=== PATIENT | male | born 1950 | race African-American/Black ===

== ENCOUNTER 2023-09-13 11:04 | Emergency (ER) | payer BC ==
[~2023-09-13] VITALS: Ht 167.6 cm; Wt 63.5 kg
[2023-09-13] MEDS: IV NS 0.9% 1,000 ML BAG IV ONE (11:55)
[2023-09-13 11:59] LABS: BASOPHILS # (AUTO) 0.1 K/uL (0.0-0.2); BASOPHILS % (AUTO) 0.6 % (0.0-2.0); EOSINOPHILS % (AUTO) 0.2 % (0.0-6.0); HEMATOCRIT 33 % (39-51); HEMOGLOBIN 11.1 g/dL (13.5-17.5); LYMPHOCYTES # (AUTO) 1.9 K/uL (0.8-4.8); LYMPHOCYTES % (AUTO) 15.5 % (20.0-44.0); MEAN CORPUSCULAR HEMOGLOBIN 30 PG (26.0-33.0); MEAN CORPUSCULAR HGB CONC 34 g/dl (31.0-36.0); MEAN CORPUSCULAR VOLUME 89 fL (80-96); MONOCYTES # (AUTO) 1.4 K/uL (0.1-1.30); MONOCYTES % (AUTO) 11.8 % (2.0-12.0); NEUTROPHILS # (AUTO) 8.7 K/uL (1.8-8.9); NEUTROPHILS % (AUTO) 71.9 % (43.0-81.0); PLATELET COUNT (AUTO) 154 K/uL (150-450); RED BLOOD CELL COUNT(AUTO) 3.69 MIL/uL (4.5-6.0); RED CELL DISTRIBUTION WIDTH 15.4 % (11.5-15.0); WHITE BLOOD COUNT (AUTO) 12.1 K/uL (4.3-11.0)
[2023-09-13] MEDS: CEFEPIME 1 GM in IV D5W 50 ML IV ONE (11:59)
[2023-09-13] MEDS: VANCOMYCIN 1 GM in IV D5W 250 ML IV ONE (12:01)
[2023-09-13 12:12] LABS: INR 1.34 (0.91-1.10); PROTHROMBIN TIME 13.6 SECS (9.2-11.1)
[2023-09-13 12:14] LABS: PARTIAL THROMBOPLASTIN TIME 19.4 SEC (24.3-34.3)
[2023-09-13 12:18] LABS: LACTIC ACID 2.1 mmol/L (0.4-2.0)
[2023-09-13 12:27] LABS: ALANINE AMINOTRANSFERASE 33 U/L (12-78); ALBUMIN 2.2 g/dL (3.4-5.0); ALKALINE PHOSPHATASE 195 U/L (46-116); ASPARTATE AMINOTRANSFERASE 98 U/L (15-37); BILIRUBIN,DIRECT 0.6 mg/dL (0.0-0.2); BILIRUBIN,TOTAL 1.6 mg/dL (0.2-1.0); CARBON DIOXIDE 28 mmol/L (21-32); CHLORIDE 105 mmol/L (98-107); CREATININE 0.8 mg/dL (0.6-1.3); GLUCOSE 111 mg/dL (74-106); SODIUM SERUM 138 mmol/L (136-145); TOTAL PROTEIN, SERUM 8.6 g/dL (6.4-8.2); UREA NITROGEN, BLOOD 10 mg/dL (7-18)
[2023-09-13 12:29] LABS: CALCIUM, SERUM 13.8 mg/dL (8.5-10.1); POTASSIUM 2.6 mmol/L (3.5-5.1)
[2023-09-13] MEDS ORDERED: Magnesium 1GM/D5W 100ML PREMIX 100 ML IV ONE (13:06)
[2023-09-13] MEDS ORDERED: POTASSIUM CL. PREMIX PERIPHER. 50 ML ONE ×2 (13:06→15:26)
[2023-09-13] MEDS: Magnesium 1GM/D5W 100ML PREMIX PIGGYBACK IV ONE (13:27)
[2023-09-13] MEDS: POTASSIUM CL. PREMIX PERIPHER. 50 ML IV SCH (13:30)
[2023-09-13] MEDS ORDERED: POTASSIUM CL. PREMIX PERIPHER. 100 ML ONE (14:12)
[2023-09-13 16:47] LABS: APPEARANCE,URINE Clear (CLEAR); BILIRUBIN,URINE Negative (NEGATIVE); BLOOD, URINE Negative Ery/uL (NEGATIVE); COLOR,URINE YELLOW (YELLOW); KETONES,URINE Negative (NEGATIVE); LEUKOCYTE ESTERASE ,URINE Negative (NEGATIVE); NITRITE, URINE Negative (NEGATIVE); PROTEIN,URINE Negative (NEGATIVE); UGLUCOSE Negative (NEGATIVE)
[2023-09-13 17:49] VITALS: BP 143/86; TEMP 98.8; O2SAT 99
[2023-09-13 18:21] LABS: ADD URINE CULTURE NO; BACTERIA,URINE Rare /HPF (None Seen); MUCUS,URINE Few /LPF (None Seen); RBC,URINE 0-2 /HPF (0-2); SQUAMOUS EPITHELIAL CELL,UR Rare /HPF (None Seen); WBC,URINE 0-2 /HPF (0-3)
== END 2023-09-13 18:05 | disposition short-term general hospital (02) ==
LOC: ER 11:04
DX: G93.49 Other encephalopathy (principal); R41.82 Altered mental status, unspecified; R56.9 Unspecified convulsions; I11.0 Hypertensive heart disease with heart failure; I50.9 Heart failure, unspecified; F17.200 Nicotine dependence, unspecified, uncomplicated; E87.6 Hypokalemia; E83.52 Hypercalcemia; J18.9 Pneumonia, unspecified organism; Z87.440 Personal history of urinary (tract) infections; Z88.8 Allergy status to other drugs, medicaments and biological substances; Z86.73 Personal history of transient ischemic attack (TIA), and cerebral infarction without residual deficits; Z20.822 Contact with and (suspected) exposure to COVID-19
CPT/HCPCS: 99285; 96366; 96365; 70450; 71045; 87426; 96368; 93005; 84145; 85025; 80048; 87040 ×2; 87086; 83605 ×2; 80076; 81001; 36415; 84484 ×2; 85730; 87081; J3370; J7060; J7030 ×2; J3480 ×3; J3475; J0692; A4223